=== PATIENT | male | born 1985 | race Caucasian/White ===

== ENCOUNTER 2019-05-10 10:56 | Emergency (ER) | payer BC, OTHER ==
[2019-05-10] MEDS ORDERED: Lidocaine 1% with EPINEPHrine 1:100,000 20 ML MDV INFILT ONE (11:22)
[2019-05-10] MEDS ORDERED: Bacitracin Oint 15 GM Tube TOP ONE (11:34)
[2019-05-10] MEDS ORDERED: Diphtheria,Pertussis(Acell),Tetanus Vaccine 0.5 ML Syringe IM ONE (11:40)
--- NOTE | 2019-05-10 11:43 | EDM.PDOC ---
ED HPI GENERAL MEDICAL PROBLEM - General Chief Complaint: Laceration Stated Complaint: INJURY TO THE HEAD Time Seen by Provider: 05/10/19 11:15 Source of Information: Reports: Patient History Limitations: Reports: No Limitations - History of Present Illness INITIAL COMMENTS - FREE TEXT/NARRATIVE: Patient presents to ER with a large laceration to the back of his head. Was wrestling with his cousin and fell and hit his head on the tv stand. He denies loss of consciousness. Was drinking "a fair amount of alcohol". Went to bed around 7 am today and awoke and evaluated the head wound more closely and realized he needed evaluation. Does have a headache today. Questions if related to lack of sleep, alcohol or the head trauma. Denies any other neurological deficits, ie. no vision changes, no weakness, numbness or tingling in his extremities. No nausea or vomiting. Onset: Today, Sudden Location: Reports: Head Quality: Reports: Ache Severity: Mild Associated Symptoms: Reports: Headaches. Denies: Nausea/Vomiting Head Pain Score (Numeric/FACES): 5 - Related Data Allergies Allergy/AdvReac Type Severity Reaction Status Date / Time bee pollen Allergy Other Verified 05/10/19 11:18 brompheniramine Allergy Other Verified 05/10/19 11:18 [From [place] DM Cold-Cough (PE)] dextromethorphan Allergy Other Verified 05/10/19 11:18 [From [place] DM Cold-Cough (PE)] phenylephrine Allergy Other Verified 05/10/19 11:18 [From [place] DM Cold-Cough (PE)] Home Meds: Home Meds Aspirin 81 mg PO DAILY 05/10/19 [History] lisinopriL [Lisinopril] 20 mg PO DAILY 05/10/19 [History] Past Medical History Cardiovascular History: Reports: Hypertension Social & Family History - Family History Family Medical History: Noncontributory - Tobacco Use Smoking Status *Q: Never Smoker - Alcohol Use Days Per Week of Alcohol Use: 2 Number of Drinks Per Day: 4 Total Drinks Per Week: 8 - Recreational Drug Use Recreational Drug Use: No ED ROS GENERAL - Review of Systems Review Of Systems: Comprehensive ROS is negative, except as noted in HPI. ED EXAM, SKIN/RASH Exam: See Below Exam Limited By: No Limitations General Appearance: Alert, WD/WN, No Apparent Distress Eye Exam: Bilateral Eye: EOMI, PERRL Ears: Normal External Exam, Normal TMs Nose: Normal Inspection, Normal Mucosa, No Blood Throat/Mouth: Normal Inspection, Normal Oropharynx Head: Normocephalic Neck: Normal Inspection, Supple, Non-Tender Respiratory/Chest: No Respiratory Distress, Lungs Clear, Normal Breath Sounds Cardiovascular: Regular Rate, Rhythm GI/Abdominal: Normal Bowel Sounds, Soft, Non-Tender Neurological: Alert, Oriented, CN II-XII Intact, Normal Cognition, Normal Gait, Normal Reflexes, No Motor/Sensory Deficits Skin: Warm, Dry, Wound/Incision (5.3 cm laceration to posterior scalp) ED SKIN PROCEDURES - Laceration/Wound Repair Head Appearance: Superficial, Irregular, Mildly Contaminated Anesthetic Type: Local Local Anesthesia - Lidocaine (Xylocaine): 1% with EPI Local Anesthetic Volume: 5cc Skin Prep: Saline Exploration/Debridement/Repair: Wound Explored, Explored to Base Closed with: [place]/Wound length In cm: 5.3 Sterile Dressing Applied: Nurse Tetanus Status Addressed: Yes Complications: No Course - Vital Signs Last Recorded V/S: Last Vital Signs Temp 98.4 F 05/10/19 11:21 Pulse 96 05/10/19 11:21 Resp 20 05/10/19 11:21 BP 154/88 H 05/10/19 11:21 Pulse Ox 97 05/10/19 11:21 - Orders/Labs/Meds Orders: Active Orders 24 hr Category Date Time Status Bacitracin [Bacitracin Oint] Med 05/10/19 11:34 Once See Dose Instructions TOP ONETIME ONE Medication Orders Bacitracin (Bacitracin Oint) 0 gm TOP ONETIME ONE Stop: 05/10/19 11:35 Meds: Medications Generic Name Dose Route Start Last Admin Trade Name Freq PRN Reason Stop Dose Admin Bacitracin 0 gm 05/10/19 11:34 Bacitracin Oint TOP 05/10/19 11:35 ONETIME ONE Discontinued Medications Generic Name Dose Route Start Last Admin Trade Name Freq PRN Reason Stop Dose Admin Lidocaine/Epinephrine 20 ml 05/10/19 11:22 Xylocaine 1% With Epinephrine 1:100,000 INFILT 05/10/19 11:23 ONETIME ONE Departure - Departure Time of Disposition: 11:45 Disposition: Home, Self-Care 01 Condition: Good Clinical Impression: Broken skin, Laceration of head - Discharge Information *PRESCRIPTION DRUG MONITORING PROGRAM REVIEWED*: No *COPY OF PRESCRIPTION DRUG MONITORING REPORT IN PATIENT GAETANO: No Instructions: Laceration Care, Adult, Stitches, [place], or Adhesive Wound Closure Referrals: Chayito Quinteros PA-C [Primary Care Provider] - Additional Instructions: 1. Keep wound clean and dry 2. Tylenol for headache 3. Monitor for any neurological changes, return if concerns 4. [place] out in 5 days 5. See primary care provider if ongoing concerns. Sepsis Event Note - Evaluation Sepsis Screening Result: No Definite Risk - Focused Exam Vital Signs: Vital Signs Temp Pulse Resp BP Pulse Ox 05/10/19 11:21 98.4 F 96 20 154/88 H 97 Date Exam was Performed: 05/10/19 Time Exam was Performed: 11:37 - My Orders Last 24 Hours: My Active Orders 05/10/19 11:34 Bacitracin [Bacitracin Oint] See Dose Instructions TOP ONETIME ONE - Assessment/Plan Last 24 Hours: My Active Orders 05/10/19 11:34 Bacitracin [Bacitracin Oint] See Dose Instructions TOP ONETIME ONE
== END 2019-05-10 12:03 | disposition home or self-care (01) ==
LOC: VM.ED 10:56
DX: Z91.030 Bee allergy status (principal); Z88.8 Allergy status to other drugs, medicaments and biological substances; Z79.82 Long term (current) use of aspirin; Z79.899 Other long term (current) drug therapy; I10 Essential (primary) hypertension
CPT/HCPCS: 12001; 12002; 90471; 90715; 99282-25